=== PATIENT | female | born 1990 | race African-American/Black ===

== ENCOUNTER 2020-10-25 20:21 | Observation (INO) | payer OTHER ==
[~2020-10-25] VITALS: Ht 157.5 cm; Wt 98.0 kg
--- NOTE | ~2020-10-25 | OP ---
[facility] [address] [place] [address] OPERATIVE REPORT Name: LIVIA MATA Room: [address] Wolf Shepherd#: [id number] Admission: 10/26/20 Attend Phys: Nima Recinos Discharge: 10/27/20 Date of : 89 Report #: [id number] THIS REPORT FOR: cc: FAM - No family physician/PCP FAM - No family physician/PCP ~ Nima Recinos MD DATE OF SERVICE: 10/26/2020 PREOPERATIVE DIAGNOSIS: Acute appendicitis. POSTOPERATIVE DIAGNOSIS: Acute appendicitis. OPERATION: Laparoscopic appendectomy. SURGEON: Nima Recinos MD. ANESTHESIA: General. ESTIMATED BLOOD LOSS: Minimal. SPECIMEN: Appendix. DESCRIPTION OF PROCEDURE: After informed consent was obtained, the patient was brought to the operating room and placed supine. SCDs were placed and working, preoperative antibiotics were administered, general anesthesia was induced. The abdomen was prepped and draped in the usual sterile fashion. A 10 mm incision was made below the umbilicus. Fascia was incised and a trocar was placed. Pneumoperitoneum was established. Right upper quadrant and left lower quadrant 5 mm trocars were placed under direct vision. The appendix was grasped and retracted anteriorly. I used the LigaSure to ligate the mesoappendix. There was excellent hemostasis. The base of the appendix was then ligated using a PDS Endoloop. The appendix was then transected and removed through a specimen bag. The fascia was then closed with a [id number] 0 Vicryl. Skin was closed with 4-0 Monocryl. Incisions were sealed with Steri-Strips. COMPLICATIONS: None. DISPOSITION: The patient was taken to recovery in satisfactory condition. By: [id number] Recinos MD /nt
[~2020-10-25 20:21] MED LIST: ZOFRAN ODT4 MG PO
[2020-10-25 20:26] VITALS: BP 168/71
[2020-10-25 21:26] LABS: ABSOLUTE EOSINOPHILS 0.2 thou/uL (0.0-0.7); ABSOLUTE LYMPHOCYTES 2.6 thou/uL (0.8-5.3); ABSOLUTE MONOCYTES 0.8 thou/uL (0.0-1.2); ABSOLUTE NEUTROPHILS 8.2 thou/uL (1.6-8.1); BASOPHILS 0.3 %; EOSINOPHILS 1.9 %; HEMATOCRIT 37.5 % (37.0-47.0); HEMOGLOBIN 12.5 gm/dL (12.0-15.0); LYMPHOCYTES 21.9 %; MCH 30.2 pg (26.0-34.0); MCHC 33.3 g/dL (28.0-37.0); MCV 90.8 fL (80.0-100.0); MONOCYTES 6.4 %; MPV 9.9 fl. (7.2-11.1); NUCLEATED RBCS 0 /100WBC; PLATELET COUNT* 216 thou/uL (150-400); POLYS 69.5 %; RBC 4.14 mil/uL (4.20-5.00); RDW-CV 12.6 % (10.5-14.5); WBC 11.9 thou/uL (4.0-11.0)
[2020-10-25 21:29] LABS: URINE BILIRUBIN NEGATIVE (Negative); URINE BLOOD NEGATIVE (Negative); URINE CLARITY CLEAR; URINE COLOR YELLOW; URINE GLUCOSE-RANDOM NEGATIVE (Negative); URINE KETONES NEGATIVE (Negative); URINE LEUKOCYTES-REFLEX NEGATIVE (Negative); URINE NITRITE-REFLEX NEGATIVE (Negative); URINE PROTEIN NEGATIVE (Negative); URINE UROBILINOGEN 0.2 E.U./dl (0.2-1.0)
[2020-10-25 21:30] LABS: CALCIUM 8.8 mg/dL (8.5-10.1); CREATININE 0.8 mg/dL (0.6-1.3); POTASSIUM 3.5 mmol/L (3.5-5.1)
[2020-10-25 21:34] LABS: ALBUMIN 3.4 g/dL (3.4-5.0); TOTAL BILIRUBIN 0.5 mg/dL (<0.1-1.0); TOTAL PROTEIN 6.8 g/dL (6.4-8.2)
[2020-10-26 01:39] VITALS: BP 117/61
[2020-10-26 05:31] VITALS: BP 122/68
[2020-10-26 08:00] VITALS: BP 107/68
[2020-10-26 12:15] VITALS: BP 107/68
[2020-10-26 15:57] VITALS: BP 128/64
--- NOTE | 2020-10-26 16:05 | NUR ---
PT ADMITTED POST OP. AT BEDSIDE AND INSISTENT THAT THE PATIENT IS HUNGRY, HOWEVER SHE WILL NOT TALK OR OPEN HER EYES TO NURSING STAFF. PT AND EDUCATED ON ANESTHESIA AND RISK OF CHOKING IF PATIENT CANNOT STAY AWAKE WHILE EATING.
--- NOTE | 2020-10-26 16:42 | NUR ---
PT REMAINED ALERT AND DROWSY. PT VOICE HARSH AND WILL NOT COMMUNICATE WITH NURSING STAFF STILL, ENABLES THIS AND TELLS HER TO POINT AND USE HER FINGERS TO TELL NURSING STAFF WHAT SHE NEEDS. EDUCATION PROVIDED AND PT ENCOURAGE TO TELL US WHAT SHE NEEDS. PT HAS VOIDED. HOURLY ROUNDING COMPLETED.
[2020-10-26 23:37] VITALS: BP 115/61
--- NOTE | 2020-10-27 04:55 | NUR ---
PATIENT SLEPT WELL DURING THIS SHIFT. PT UP WITH STANDBY TO BATHROOM. PT WITH FLUIDS/ANTIBIOTICS INFUSING PER DR ORDER. PT TAKES HYDROCODONE 1 TAB FOR ABDOMINAL PAIN. PT HAS THREE ABODMINAL LAP SITES; C/D/I. FREQUENTLY USED ITEMS AND CALL LIGHT WITHIN REACH. SIDERAILS UPX2. WILL CONTINUE TO MONITOR.
[2020-10-27 08:11] VITALS: BP 109/71
[2020-10-27] MEDS ORDERED: NORCO 10-325 T1 EACH PO (12:12)
[2020-10-27 13:16] VITALS: BP 109/71
[2020-10-27 13:19] VITALS: BP 109/71
--- NOTE | 2020-10-27 14:18 | NUR ---
PATIENT GIVEN DISCHARGE INSTRUCTIONS AND PRESCRIPTION WAS PROVIDED BY DR. BHANDARI. PATIENT DENIES ANY QUESTIONS/CONCERNS PRIOR TO DISCHARGE. IV REMOVED. PATIENT LEFT UNIT WITH PERSONAL BELONGINGS ACCOMPANIED BY NURSING STAFF AT APPROX. 1350.
[2020-10-27 14:21] VITALS: BP 109/71
--- NOTE | 2020-10-30 14:07 | PATH ---
[address] [address] PATHOLOGY RPT PROCEDURE Name: LIVIA MATA Room: [address] Wolf Shepherd#: [id number] Admission: 10/26/20 Date of : 89 Discharge: 10/27/20 Report #: [id number] Path Case #: [id number] [facility] Accession Number: [id number] . 01 Material submitted: . appendix - APPENDIX . 01 Clinical history: . ACUTE APPENDICITIS . 02 Diagnosis: Appendix: - Acute appendicitis, periappendicitis and serositis. See comment. (MARIETTA:shraddha; 10/30/2020) QMS 10/30/2020 1238 Local . 02 Comment: The grossly described serosal nodule near the distal tip represents edematous and inflamed benign fibrous connective tissue. (MARIETTA:shraddha; ) . 02 Electronically signed: . Shaan Mccurdy MD, Pathologist NPI- [id number] . 01 Gross description: . The specimen is received in formalin, labeled "lencho Méndez". Received is a vermiform appendix measuring 8.9 cm in length by up to 1.2 cm in diameter with a moderate amount of attached mesoappendix. The serosal surface is pale fragoso in appearance with moderate vasculature, and has a serosal nodule measuring 0.4 cm located 1.2 cm from the distal margin. The surgical margin is closed with a line of burke. The burke are removed and the new margin is inked black. Sectioning reveals a pinpoint to patent lumen. The specimen is submitted resources representative as follows: . A1-A2 proximal margin and entire bisected tip A3 cross-section near distal tip to include serosal nodule A4 additional cross sections of appendix. (CAA; 10/28/2020) QA/[facility] 10/30/2020 1237 Local . 02 Microscopic: . . . 02 Pathologist provided ICD-10: K35.80 . 02 [place] [address] PATHOLOGY RPT PROCEDURE Name: LIVIA MATA Room: [address] Wolf Shepherd#: [id number] Admission: 10/26/20 Date of : 89 Discharge: 10/27/20 Report #: [id number] Path Case #: [id number] [facility] . [id number] Specimen Comment: A courtesy copy of this report has been sent to [phone] Specimen Comment: Report sent to Performed at: [address], [place], [place] [id number] MD Richardson Lambert MD Phone: [phone] Performed at: 02 [facility] [address], [place], [place] [id number] MD Shaan Mccurdy MD Phone: [phone]
== END 2020-10-27 13:50 | disposition home or self-care (01) ==
LOC: M.ERS 20:21 → M.TBA-ER 10-26 00:26 → M.2W 10-26 00:26
PROVIDERS: Personal Emergency Response Attendant; ADMIT Surgery; ATTEND Surgery
DX: K35.80 Unspecified acute appendicitis (principal); R42 Dizziness and giddiness; Z98.890 Other specified postprocedural states